=== PATIENT | male | born 1960 | race Two or more races ===

== ENCOUNTER 2018-08-05 05:54 | Day surgery (SDC) | payer BC ==
[~2018-08-05] VITALS: Ht 177.8 cm; Wt 79.0 kg
[2018-08-05] MEDS ORDERED: FENTANYL PF 100 MCG/2ML ONE ×3 (06:50→08:52)
[2018-08-05] MEDS ORDERED: MIDAZOLAM 1 MG/ML, 2ML ONE (06:50)
[2018-08-05] MEDS ORDERED: PROPOFOL 10 MG/ML, 20ML ONE (06:50)
[2018-08-05] MEDS ORDERED: LIDOCAINE-MPF 2% ,5ML ONE (06:50)
[2018-08-05] MEDS ORDERED: LACTATED RINGERS 1,000 ML IV SCH (06:56)
[2018-08-05 06:57] VITALS: BP 137/84
[2018-08-05] MEDS ORDERED: BUPIVACAINE/PF 0.25% ONE (07:01)
[2018-08-05] MEDS ORDERED: IBUP-1484 PO (07:02)
[2018-08-05] MEDS ORDERED: EPINEPHRINE 1 MG/ML, 1ML ONE (07:02)
[2018-08-05] MEDS ORDERED: CEFAZOLIN 1,000 MG ONE (07:24)
[2018-08-05] MEDS ORDERED: ONDANSETRON 2MG/ML, 2ML ONE (07:24)
[2018-08-05] MEDS ORDERED: HYDROmorphone 2 MG/ML, 1ML IVPush PRN (07:30)
[2018-08-05] MEDS ORDERED: OXYcodone 5 MG/5 ML ORAL.SOL UDC PO PRN (07:30)
[2018-08-05] MEDS ORDERED: ALBUTEROL SULFATE 2.5 MG/3 ML NPPB PRN (07:30)
[2018-08-05] MEDS ORDERED: MEPERIDINE/PF 25MG/0.5ML IVPush PRN (07:30)
[2018-08-05] MEDS ORDERED: LORazepam 2 MG/ML, 1ML IVPush PRN (07:30)
[2018-08-05] MEDS ORDERED: METOCLOPRAMIDE 5 MG/ML, 2ML IV PRN (07:30)
[2018-08-05] MEDS ORDERED: ACETAMINOPHEN 325 MG TABLET PO PRN (07:30)
[2018-08-05] MEDS ORDERED: morphine SULFATE/PF 1 MG/ML, 10ML ONE (08:00)
[2018-08-05] MEDS ORDERED: HYDROmorphone 2 MG/ML, 1ML ONE (08:00)
[2018-08-05] MEDS ORDERED: MEPERIDINE/PF 50 MG/ML ONE (08:34)
[2018-08-05] MEDS ORDERED: OXYcodone 5 MG/5 ML ORAL.SOL UDC ONE (08:52)
[2018-08-05] MEDS ORDERED: ACETAMINOPHEN 650 MG/20.3 ML UDC ONE (08:52)
[2018-08-05] MEDS: FENTANYL PF 100 MCG/2ML IV PRN ×2 (08:56→09:11)
== END 2018-08-05 10:35 | disposition home or self-care (01) ==
LOC: OUT 05:54
PROVIDERS: ATTEND Orthopaedic Surgery
DX: S83.241A Other tear of medial meniscus, current injury, right knee, initial encounter (principal); M65.861 Other synovitis and tenosynovitis, right lower leg; M1A.9XX1 Chronic gout, unspecified, with tophus (tophi); J45.909 Unspecified asthma, uncomplicated; X58.XXXA Exposure to other specified factors, initial encounter; Y93.89 Activity, other specified; Y92.89 Other specified places as the place of occurrence of the external cause; Y99.8 Other external cause status
CPT/HCPCS: 29876; 29881; 87015; 87070; 87075; 87102; 87116; 87205; 87206; 88305; 88331; 89060; J0171; J0690; J2250; J2274; J2405; J2704; J3010; J3490; J7120; J1170